=== PATIENT | male | born 1965 | race Hispanic/Latino ===

== ENCOUNTER → 2019-02-02 | Outpatient (CLI) | payer OTHER ==
[2019-02-02 11:45] LABS: BASOPHILS # (AUTO) 0.1 (0.0-0.1); BASOPHILS % 0.8 % (0.0-1.0); EOSINOPHILS # (AUTO) 0.1 (0.0-0.4); EOSINOPHILS % 1.4 % (0.0-6.0); HEMATOCRIT 49.6 % (38.2-49.6); HEMOGLOBIN 16.4 g/dL (14.0-18.0); LYMPHOCYTES # (AUTO) 1.9 (1.0-3.2); LYMPHOCYTES % 29.8 % (18.0-39.1); MEAN CORPUSCULAR HEMOGLOBIN 27.7 pg (28-32); MEAN CORPUSCULAR HGB CONC 33.1 g/dL (31-35); MEAN CORPUSCULAR VOLUME 83.9 fL (81-99); MONOCYTES # (AUTO) 0.6 (0.2-0.8); MONOCYTES % 9.3 % (4.4-11.3); NEUTROPHILS # (AUTO) 3.8 (2.1-6.9); NEUTROPHILS % 58.4 % (38.7-80.0); PLATELET COUNT 179 x10e3/uL (140-360); RED BLOOD COUNT 5.91 x10e6/uL (4.3-5.7); RED CELL DISTRIBUTION WIDTH 13.6 % (11.7-14.4)
[2019-02-02 12:02] LABS: ALANINE AMINOTRANSFERASE 92 IU/L (0-55); ALBUMIN 4.1 g/dL (3.5-5.0); ALBUMIN/GLOBULIN RATIO 1.3 (0.8-2.0); ALKALINE PHOSPHATASE 47 IU/L (40-150); AMYLASE 80 U/L (25-125); ANION GAP 13.2 mmol/L (8-16); BLOOD UREA NITROGEN 12 mg/dL (7-26); BUN/CREATININE RATIO 12 (6-25); CALCIUM 9.4 mg/dL (8.4-10.2); CARBON DIOXIDE 28 mmol/L (22-29); CHLORIDE 98 mmol/L (98-107); CREATININE, SERUM 1.03 mg/dL (0.72-1.25); EST GLOMERULAR FILTRATION RATE > 60 ML/MIN (60-); GLUCOSE 88 mg/dL (74-118); POTASSIUM 4.2 mmol/L (3.5-5.1); SODIUM 135 mmol/L (136-145)
--- NOTE | 2019-02-02 13:29 | Diagnostic Imaging Report ---
Right upper quadrant abdominal ultrasound. History: Bloating and indigestion. Comparison: <None available>. Discussion: Transverse and longitudinal images of the right upper quadrant of the abdomen were obtained demonstrating a liver of normal size but with increased echogenicity measuring 15.5 cm in length. There is no evidence of a focal hepatic mass. The portal vein is patent with hepatopetal flow and is within normal limits measuring 11 mm in diameter. The biliary tree is within normal limits with the common bile duct measuring 3 mm in diameter. The gallbladder is normal without evidence of wall thickening or pericholecystic fluid. Gallbladder wall measures 2 mm. The sonographic Hwang's sign was negative. The right kidney is normal in size and echogenicity without evidence of hydronephrosis, stones or mass and measures 10.4 x 5.0 x 4.7 cm. There is a mid pole right renal cyst measuring maximum dimension of 1.9 cm. The pancreatic <body and tail> are visualized and are normal in appearance. The abdominal aorta is within normal limits measuring 2.5 cm. The IVC is patent. There is no evidence of free fluid. IMPRESSION: 1. Increased hepatic echogenicity compatible with hepatic steatosis. 2. Normal-appearing gallbladder without stones, biliary dilatation or wall thickening. 3. Small right renal cyst. Signed by: Dr. Deuce Mcclellan DO on 02/02/2019 1:26 PM
== END ==
LOC: US 11:01
PROVIDERS: ATTEND Surgery
DX: R10.9 Unspecified abdominal pain (principal); R14.0 Abdominal distension (gaseous); K30 Functional dyspepsia
CPT/HCPCS: 36415; 76705; 80053; 82150; 85025

== ENCOUNTER → 2019-02-17 | Day surgery (SDC) | payer OTHER ==
[2019-02-13 10:56] LABS: BASOPHILS # (AUTO) 0.1 (0.0-0.1); BASOPHILS % 1.2 % (0.0-1.0); EOSINOPHILS # (AUTO) 0.1 (0.0-0.4); EOSINOPHILS % 2.4 % (0.0-6.0); HEMATOCRIT 50.1 % (38.2-49.6); MEAN CORPUSCULAR HEMOGLOBIN 28.2 pg (28-32); MEAN CORPUSCULAR HGB CONC 33.9 g/dL (31-35); MEAN CORPUSCULAR VOLUME 83.1 fL (81-99); MONOCYTES # (AUTO) 0.6 (0.2-0.8); MONOCYTES % 10.1 % (4.4-11.3); NEUTROPHILS % 52.1 % (38.7-80.0); PLATELET COUNT 184 x10e3/uL (140-360); RED BLOOD COUNT 6.03 x10e6/uL (4.3-5.7)
[2019-02-13 11:17] LABS: ANION GAP 15.9 mmol/L (8-16); BLOOD UREA NITROGEN 10 mg/dL (7-26); BUN/CREATININE RATIO 10 (6-25); CALCIUM 9.2 mg/dL (8.4-10.2); CARBON DIOXIDE 23 mmol/L (22-29); CHLORIDE 101 mmol/L (98-107); CREATININE, SERUM 1.04 mg/dL (0.72-1.25); EST GLOMERULAR FILTRATION RATE > 60 ML/MIN (60-); GLUCOSE 84 mg/dL (74-118); POTASSIUM 3.9 mmol/L (3.5-5.1); SODIUM 136 mmol/L (136-145)
[~2019-02-17] MED LIST: FENTANYL CITRATE/PF 100MCG/2 ML INJ ONE; HYDROCHLOROTHIA25 MG PO; LEXAPRO10 MG PO; LIDOCAINE HCL 2% LOCAL INJ 5 ML SDV VIAL INJ ONE; LOSARTAN POTAS100 MG PO; MIDAZOLAM HCL 2 MG/2 ML VIAL ONE; PRAVASTATIN SOD40 MG PO; PREVACID15 M1 PO; PROPOFOL IV EMULSION 10 MG/ML 20 ML VIAL ONE; ZYRTEC10 M3 PO
--- OUTSIDE RECORDS SUMMARY | 2019-02-17 07:21 | XMS REPORT ---
[facility] Address Unknown Phone Unavailable Care Team Providers Care Mammal Keeper Name Role Phone Jose SULLIVAN Unavailable Unavailable Problems This patient has no known problems. Allergies, Adverse Reactions, Alerts This patient has no known allergies or adverse reactions. Medications This patient has no known medications. Results Test Description Test Time Test Comments Text Results Atomic Results Result Comments US GALLBLADDER 2019-02-02 13:18:00 [place] [address] Patient Name: IRMA PONCE MR #: [id number] : 1965 Age/Sex: 53/M Req #: [id number] [facility] Physician: Ordered by: GISELA SULLIVAN MD Report #: [id number] Location: Room/Bed: Procedure: [id number] US/US GALLBLADDER Exam Date: 02/02/19 Exam Time: 1200 REPORT STATUS: Signed Right upper quadrant abdominal ultrasound. History: Bloating and indigestion. Comparison: <None available>. Discussion: Transverse and longitudinal images of the right upper quadrant of the abdomen were obtained demonstrating a liver of normal size but with increased echogenicity measuring 15.5 cm in length. There is no evidence of a focal hepatic mass. The portal vein is patent with hepatopetal flow and is within normal limits measuring 11 mm in diameter. The biliary tree is within normal limits with the common bile duct measuring 3 mm in diameter. The gallbladder is normal without evidence of wall thickening or pericholecystic fluid. Gallbladder wall measures 2 mm. The sonographic Hwang's sign was negative. The right kidney is normal in size and echogenicity without evidence of hydronephrosis, stones or mass and measures 10.4 x 5.0 x 4.7 cm. There is a mid pole right renal cyst measuring maximum dimension of 1.9 cm. The pancreatic <body and tail> are visualized and are normal in appearance. The abdominal aorta is within normal limits measuring 2.5 cm. The IVC is patent. There is no evidence of free fluid. IMPRESSION: 1. Increased hepatic echogenicity compatible with hepatic steatosis. 2. Normal- appearing gallbladder without stones, biliary dilatation or wall thickening. 3. Small right renal cyst. Signed by: Dr. Billie Mcclellan DO on 02/02/2019 1:26 PM Dictated By: BILLIE MCCLELLAN DO 1326 Transcribed By: GILES on 02/02/19 1326 COPY TO: GISELA SULLIVAN MD
[2019-02-17 10:27] VITALS: BP 123/83
== END | disposition home or self-care (01) ==
LOC: OR 06:56
PROVIDERS: ATTEND Surgery
DX: K29.50 Unspecified chronic gastritis without bleeding (principal); K21.0 Gastro-esophageal reflux disease with esophagitis; B96.81 Helicobacter pylori [H. pylori] as the cause of diseases classified elsewhere; K57.30 Diverticulosis of large intestine without perforation or abscess without bleeding; E78.5 Hyperlipidemia, unspecified; I10 Essential (primary) hypertension; Z01.810 Encounter for preprocedural cardiovascular examination; Z01.812 Encounter for preprocedural laboratory examination
CPT/HCPCS: 36415; 43239; 45378; 80048; 85025; 88305; 88312; 93005; J2001; J2250; J2704; J3010